=== PATIENT | female | born 1960 | race Caucasian/White ===

== ENCOUNTER 2018-03-06 14:00 | Outpatient (CLI) | payer OTHER ==
[2013-10-22 16:23] VITALS: BP 131/90
[2018-03-06 15:07] LABS: eGFR (African) > 60; eGFR (Non-African) > 60
== END 2018-03-06 14:02 ==
LOC: LAB 14:00
PROVIDERS: ATTEND Physician Assistant
DX: R30.0 Dysuria (principal); R81 Glycosuria
CPT/HCPCS: 36415; 80053; 83036; 87086

== ENCOUNTER 2018-03-19 07:05 | Outpatient (CLI) | payer OTHER ==
[2013-10-22 16:23] VITALS: BP 131/90
== END 2018-03-19 07:06 ==
LOC: LAB 07:05
PROVIDERS: ATTEND Physician Assistant
DX: Z13.6 Encounter for screening for cardiovascular disorders (principal)
CPT/HCPCS: 36415; 80061